=== PATIENT | male | born 1975 | race Caucasian/White ===

== ENCOUNTER 2019-06-21 21:50 | Inpatient (IN) | payer SELFPAY ==
[~2019-06-21] VITALS: Ht 185.4 cm; Wt 93.2 kg
[2019-06-21] MEDS ORDERED: SODIUM CHLORIDE FLUSH 10ML SYR IVF ONE (23:00)
[2019-06-21 23:08] LABS: BASOPHILS # (AUTO) 0.01 x10^3/uL (0-0.1); BASOPHILS % (AUTO) 0 % (0-1); EOSINOPHILS # (AUTO) 0.28 x10^3/uL (0-0.4); EOSINOPHILS % (AUTO) 2 % (1-7); LYMPHOCYTES # (AUTO) 2.36 x10^3/uL (1-3.4); LYMPHOCYTES % (AUTO) 13 % (22-44); MD NO; MEAN CORPUSCULAR HEMOGLOBIN 28.1 pg (27.5-34.5); MEAN CORPUSCULAR HGB CONC 32.7 g/dL (33.2-36.2); MEAN PLATELET VOLUME 7.6 fL (7.4-10.4); MONOCYTES # (AUTO) 1.07 x10^3/uL (0.2-0.8); MONOCYTES % (AUTO) 6 % (2-9); NEUTROPHILS # (AUTO) 14.09 x10^3/uL (1.8-6.8); NEUTROPHILS % (AUTO) 79 % (42-75); PLATELET COUNT 372 x10^3/uL (130-400); RED BLOOD COUNT 4.52 x10^6/uL (4.38-5.82)
[2019-06-21 23:09] LABS: HCT (SEDRATE) 38.9 % (39.2-51.8)
[2019-06-21 23:17] LABS: ALANINE AMINOTRANSFERASE 38 U/L (12-78); ALBUMIN 2.9 g/dL (3.4-5.0); ANION GAP 3 mmol/L (5-15); CALCIUM 9.1 mg/dL (8.5-10.1); CHLORIDE 103 mmol/L (98-107); CREATININE 1.07 mg/dL (0.7-1.3)
[2019-06-21 23:25] LABS: ALKALINE PHOSPHATASE 157 U/L (45-117); BILIRUBIN,TOTAL 0.6 mg/dL (0.2-1.0); TOTAL PROTEIN 8.6 g/dL (6.4-8.2)
[2019-06-21] MEDS ORDERED: OMNIPAQUE 350 MG/ML, 100ML BOTTLE ONE (23:30)
[2019-06-21] MEDS ORDERED: PIPERACILLIN/TAZO/PMX 3.375GM 50 ML IV ONE (23:30)
[2019-06-21] MEDS ORDERED: PIPERACILLIN/TAZO/PMX 3.375GM 50 ML ONE (23:39)
[2019-06-22] MEDS ORDERED: DOCUSATE 100 MG CAPSULE PO PRN (01:00)
[2019-06-22] MEDS ORDERED: ONDANSETRON 2MG/ML, 2ML IVPush PRN (01:00)
[2019-06-22] MEDS ORDERED: VANCOMYCIN PER PHARMACY MC PRN (01:00)
[2019-06-22] MEDS ORDERED: TEMAZEPAM 15 MG CAPSULE PO PRN (01:00)
[2019-06-22] MEDS ORDERED: LIDODERM 5% PATCH TD PRN (01:00)
[2019-06-22] MEDS ORDERED: ACETAMINOPHEN 325 MG TABLET PO PRN (01:00)
[2019-06-22 01:26] VITALS: BP 126/78
[2019-06-22] MEDS ORDERED: PHARMACOKINETIC MONITORING MC PRN (01:30)
[2019-06-22] MEDS: ENOXAPARIN 40 MG/0.4 ML SQ SCH (02:15)
[2019-06-22] MEDS: NICOTINE 7 MG/24 HR PATCH.TD24 TD SCH (02:15)
[2019-06-22] MEDS: VANCOMYCIN 2,000 MG in SODIUM CHLORIDE 0.9% 500 ML IV SCH ×2 (02:15→14:43)
[2019-06-22 03:25] LABS: AMPHETAMINE SCREEN, URINE Negative (Negative); BARBITURATE SCREEN, URINE Negative (Negative); BENZODIAZEPINE SCREEN, URINE Negative (Negative); CANNABINOID SCREEN, URINE Positive (Negative); COCAINE SCREEN, URINE Negative (Negative); METHADONE SCREEN, URINE Negative (Negative); OPIATE SCREEN, URINE Positive (Negative)
[2019-06-22 05:16] LABS: BASOPHILS # (AUTO) 0.03 x10^3/uL (0-0.1); BASOPHILS % (AUTO) 0 % (0-1); EOSINOPHILS # (AUTO) 0.27 x10^3/uL (0-0.4); EOSINOPHILS % (AUTO) 2 % (1-7); LYMPHOCYTES # (AUTO) 1.93 x10^3/uL (1-3.4); LYMPHOCYTES % (AUTO) 15 % (22-44); MD NO; MEAN CORPUSCULAR HEMOGLOBIN 28.1 pg (27.5-34.5); MEAN CORPUSCULAR HGB CONC 32.7 g/dL (33.2-36.2); MEAN PLATELET VOLUME 7.5 fL (7.4-10.4); MONOCYTES % (AUTO) 10 % (2-9); NEUTROPHILS # (AUTO) 8.99 x10^3/uL (1.8-6.8); NEUTROPHILS % (AUTO) 72 % (42-75); PLATELET COUNT 303 x10^3/uL (130-400); RED BLOOD COUNT 3.74 x10^6/uL (4.38-5.82); RED CELL DISTRIBUTION WIDTH 15.7 % (9.4-14.8)
[2019-06-22 05:17] LABS: ANION GAP 7 mmol/L (5-15); CALCIUM 8.3 mg/dL (8.5-10.1); CHLORIDE 104 mmol/L (98-107)
[2019-06-22 07:30] VITALS: BP 122/72
[2019-06-22] MEDS: AMPICILLIN/SULBACTAM 3 GM in SODIUM CHLORIDE 0.9% 100 ML IV SCH ×2 (08:00→17:50)
[2019-06-22 14:00] VITALS: BP 117/66
[2019-06-22] MEDS: morphine SULFATE 15 MG TAB.IR PO PRN (18:01)
[2019-06-22 19:35] VITALS: BP 137/87
[2019-06-23] MEDS: ENOXAPARIN 40 MG/0.4 ML SQ SCH (01:07)
[2019-06-23] MEDS: NICOTINE 7 MG/24 HR PATCH.TD24 TD SCH (01:08)
[2019-06-23] MEDS: AMPICILLIN/SULBACTAM 3 GM in SODIUM CHLORIDE 0.9% 100 ML IV SCH ×3 (02:14→17:51)
[2019-06-23] MEDS: morphine SULFATE 15 MG TAB.IR PO PRN ×4 (02:20→20:29)
[2019-06-23 02:24] VITALS: BP 125/80
[2019-06-23] MEDS: VANCOMYCIN 2,000 MG in SODIUM CHLORIDE 0.9% 500 ML IV SCH ×2 (02:56→14:50)
[2019-06-23 05:59] LABS: MEAN CORPUSCULAR HGB CONC 32.8 g/dL (33.2-36.2); MEAN CORPUSCULAR VOLUME 85.3 fL (81-97); MEAN PLATELET VOLUME 7.5 fL (7.4-10.4); PLATELET COUNT 337 x10^3/uL (130-400); RED BLOOD COUNT 3.66 x10^6/uL (4.38-5.82); RED CELL DISTRIBUTION WIDTH 15.6 % (9.4-14.8)
[2019-06-23 06:10] LABS: CHLORIDE 104 mmol/L (98-107)
[2019-06-23 06:16] LABS: ANION GAP 6 mmol/L (5-15); CALCIUM 8.1 mg/dL (8.5-10.1); CREATININE 0.64 mg/dL (0.7-1.3)
[2019-06-23 06:27] LABS: BASOPHILS # (AUTO) 0.02 x10^3/uL (0-0.1); BASOPHILS % (AUTO) 0 % (0-1); EOSINOPHILS # (AUTO) 0.17 x10^3/uL (0-0.4); EOSINOPHILS % (AUTO) 1 % (1-7); LYMPHOCYTES # (AUTO) 2.32 x10^3/uL (1-3.4); LYMPHOCYTES % (AUTO) 18 % (22-44); MD SCAN; MONOCYTES # (AUTO) 1.51 x10^3/uL (0.2-0.8); MONOCYTES % (AUTO) 12 % (2-9); NEUTROPHILS # (AUTO) 8.64 x10^3/uL (1.8-6.8); NEUTROPHILS % (AUTO) 68 % (42-75)
[2019-06-23 08:26] VITALS: BP 124/78
[2019-06-23] MEDS: KETOROLAC 30 MG/1 ML IV PRN ×2 (09:43→17:51)
[2019-06-23] MEDS ORDERED: POTASSIUM CHLORIDE 20 MEQ TAB.ER.PRT PO ONE (10:00)
[2019-06-23 14:57] VITALS: BP 142/78
[2019-06-23 19:52] VITALS: BP 127/81
[2019-06-24] MEDS: ENOXAPARIN 40 MG/0.4 ML SQ SCH ×2 (00:49→21:34)
[2019-06-24] MEDS: morphine SULFATE 15 MG TAB.IR PO PRN ×4 (01:16→23:39)
[2019-06-24] MEDS: NICOTINE 7 MG/24 HR PATCH.TD24 TD SCH ×2 (01:17→21:41)
[2019-06-24] MEDS: AMPICILLIN/SULBACTAM 3 GM in SODIUM CHLORIDE 0.9% 100 ML IV SCH ×3 (02:37→21:05)
[2019-06-24 02:59] VITALS: BP 122/72
[2019-06-24] MEDS: VANCOMYCIN 2,000 MG in SODIUM CHLORIDE 0.9% 500 ML IV SCH ×2 (03:57→18:38)
[2019-06-24 05:52] LABS: BASOPHILS # (AUTO) 0.03 x10^3/uL (0-0.1); BASOPHILS % (AUTO) 0 % (0-1); EOSINOPHILS # (AUTO) 0.15 x10^3/uL (0-0.4); EOSINOPHILS % (AUTO) 2 % (1-7); LYMPHOCYTES # (AUTO) 2.29 x10^3/uL (1-3.4); LYMPHOCYTES % (AUTO) 22 % (22-44); MD NO; MEAN CORPUSCULAR HEMOGLOBIN 27.8 pg (27.5-34.5); MEAN CORPUSCULAR HGB CONC 32.7 g/dL (33.2-36.2); MEAN PLATELET VOLUME 7.1 fL (7.4-10.4); MONOCYTES # (AUTO) 1.03 x10^3/uL (0.2-0.8); MONOCYTES % (AUTO) 10 % (2-9); NEUTROPHILS % (AUTO) 66 % (42-75); PLATELET COUNT 380 x10^3/uL (130-400); RED BLOOD COUNT 3.72 x10^6/uL (4.38-5.82); RED CELL DISTRIBUTION WIDTH 15.9 % (9.4-14.8)
[2019-06-24 06:04] LABS: ANION GAP 7 mmol/L (5-15); CALCIUM 8.4 mg/dL (8.5-10.1); CHLORIDE 108 mmol/L (98-107)
[2019-06-24 06:06] LABS: CREATININE 0.69 mg/dL (0.7-1.3)
[2019-06-24 08:14] VITALS: BP 146/78
[2019-06-24] MEDS: KETOROLAC 30 MG/1 ML IV PRN ×2 (11:09→19:39)
[2019-06-24 13:57] VITALS: BP 158/90
[2019-06-24] MEDS ORDERED: MIDAZOLAM 1 MG/ML, 2ML ONE (16:15)
[2019-06-24] MEDS ORDERED: FENTANYL PF 100 MCG/2ML ONE ×2 (16:15→16:27)
[2019-06-24] MEDS ORDERED: FENTANYL PF 250 MCG/5ML ONE (16:27)
[2019-06-24] MEDS ORDERED: DEXAMETHASONE 4 MG/ML, 1ML ONE (16:33)
[2019-06-24] MEDS ORDERED: ONDANSETRON 2MG/ML, 2ML ONE (16:33)
[2019-06-24] MEDS ORDERED: PROPOFOL 10 MG/ML, 20ML ONE (16:33)
[2019-06-24] MEDS ORDERED: CEFAZOLIN 1,000 MG ONE (16:33)
[2019-06-24] MEDS ORDERED: HALOPERIDOL 5 MG/ML ONE (16:46)
[2019-06-24] MEDS ORDERED: LORazepam 2 MG/ML, 1ML IVPush PRN (17:00)
[2019-06-24] MEDS ORDERED: ONDANSETRON 2MG/ML, 2ML IV PRN (17:00)
[2019-06-24] MEDS: HYDROmorphone 2 MG/ML, 1ML IVPush PRN ×2 (17:00→17:15)
[2019-06-24] MEDS ORDERED: HALOPERIDOL 5 MG/ML IV PRN (17:00)
[2019-06-24] MEDS ORDERED: MEPERIDINE/PF 25MG/ML,1ML IVPush PRN (17:00)
[2019-06-24] MEDS ORDERED: OXYcodone 5 MG/5 ML ORAL.SOL UDC PO PRN (17:00)
[2019-06-24] MEDS ORDERED: PROMETHAZINE 25 MG SUPP PR PRN (17:00)
[2019-06-24] MEDS ORDERED: ACETAMINOPHEN 325 MG TABLET PO PRN (17:00)
[2019-06-24] MEDS ORDERED: FENTANYL PF 100 MCG/2ML IV PRN (17:00)
[2019-06-24] MEDS ORDERED: ONDANSETRON ODT 8 MG PO PRN (17:00)
[2019-06-24] MEDS ORDERED: HYDROmorphone 1 MG/ML, 1ML INJ ONE (17:02)
[2019-06-24] MEDS ORDERED: ACETAMINOPHEN 650 MG/20.3 ML UDC ONE (17:11)
[2019-06-24] MEDS ORDERED: ACETAMINOPHEN 325 MG TABLET ONE (17:11)
[2019-06-24 20:55] VITALS: BP 155/88
[2019-06-25 02:17] VITALS: BP 127/81
[2019-06-25] MEDS: KETOROLAC 30 MG/1 ML IV PRN ×2 (02:23→22:45)
[2019-06-25] MEDS: morphine SULFATE 15 MG TAB.IR PO PRN ×5 (03:39→22:05)
[2019-06-25] MEDS: AMPICILLIN/SULBACTAM 3 GM in SODIUM CHLORIDE 0.9% 100 ML IV SCH ×3 (05:22→21:54)
[2019-06-25 05:42] LABS: BASOPHILS # (AUTO) 0.03 x10^3/uL (0-0.1); BASOPHILS % (AUTO) 0 % (0-1); EOSINOPHILS # (AUTO) 0.09 x10^3/uL (0-0.4); EOSINOPHILS % (AUTO) 1 % (1-7); LYMPHOCYTES # (AUTO) 1.66 x10^3/uL (1-3.4); LYMPHOCYTES % (AUTO) 16 % (22-44); MD NO; MEAN CORPUSCULAR HGB CONC 32.9 g/dL (33.2-36.2); MEAN CORPUSCULAR VOLUME 85.1 fL (81-97); MEAN PLATELET VOLUME 7.3 fL (7.4-10.4); MONOCYTES # (AUTO) 0.87 x10^3/uL (0.2-0.8); MONOCYTES % (AUTO) 8 % (2-9); NEUTROPHILS % (AUTO) 74 % (42-75); PLATELET COUNT 436 x10^3/uL (130-400); RED BLOOD COUNT 3.98 x10^6/uL (4.38-5.82); RED CELL DISTRIBUTION WIDTH 15.1 % (9.4-14.8)
[2019-06-25 05:47] LABS: HCT (SEDRATE) 33.4 % (39.2-51.8)
[2019-06-25 05:49] LABS: ANION GAP 9 mmol/L (5-15); CALCIUM 8.4 mg/dL (8.5-10.1); CHLORIDE 107 mmol/L (98-107)
[2019-06-25] MEDS: VANCOMYCIN 2,000 MG in SODIUM CHLORIDE 0.9% 500 ML IV SCH ×2 (06:27→18:29)
[2019-06-25 07:41] VITALS: BP 141/68
[2019-06-25 07:48] VITALS: BP 154/99
[2019-06-25 13:04] VITALS: BP 129/84
[2019-06-25 19:44] VITALS: BP 116/77
[2019-06-25] MEDS: NICOTINE 7 MG/24 HR PATCH.TD24 TD SCH (22:10)
[2019-06-26] MEDS: ENOXAPARIN 40 MG/0.4 ML SQ SCH (00:13)
[2019-06-26 01:40] VITALS: BP 101/64
[2019-06-26] MEDS: AMPICILLIN/SULBACTAM 3 GM in SODIUM CHLORIDE 0.9% 100 ML IV SCH ×2 (04:59→13:15)
[2019-06-26] MEDS: morphine SULFATE 15 MG TAB.IR PO PRN ×2 (05:10→10:49)
[2019-06-26] MEDS: KETOROLAC 30 MG/1 ML IV PRN (05:13)
[2019-06-26] MEDS: VANCOMYCIN 2,000 MG in SODIUM CHLORIDE 0.9% 500 ML IV SCH (06:24)
[2019-06-26 07:14] LABS: BASOPHILS # (AUTO) 0.03 x10^3/uL (0-0.1); BASOPHILS % (AUTO) 0 % (0-1); EOSINOPHILS # (AUTO) 0.31 x10^3/uL (0-0.4); EOSINOPHILS % (AUTO) 3 % (1-7); LYMPHOCYTES # (AUTO) 1.78 x10^3/uL (1-3.4); LYMPHOCYTES % (AUTO) 17 % (22-44); MD NO; MEAN CORPUSCULAR HEMOGLOBIN 28.1 pg (27.5-34.5); MEAN CORPUSCULAR HGB CONC 32.9 g/dL (33.2-36.2); MEAN CORPUSCULAR VOLUME 85.4 fL (81-97); MEAN PLATELET VOLUME 7.1 fL (7.4-10.4); MONOCYTES # (AUTO) 0.94 x10^3/uL (0.2-0.8); MONOCYTES % (AUTO) 9 % (2-9); NEUTROPHILS # (AUTO) 7.26 x10^3/uL (1.8-6.8); NEUTROPHILS % (AUTO) 70 % (42-75); PLATELET COUNT 423 x10^3/uL (130-400); RED BLOOD COUNT 3.75 x10^6/uL (4.38-5.82); RED CELL DISTRIBUTION WIDTH 15.4 % (9.4-14.8)
[2019-06-26 07:21] LABS: ANION GAP 7 mmol/L (5-15); CALCIUM 8.3 mg/dL (8.5-10.1); CHLORIDE 108 mmol/L (98-107)
[2019-06-26 07:25] LABS: CREATININE 0.77 mg/dL (0.7-1.3)
[2019-06-26 07:58] VITALS: BP 125/80
[2019-06-26] MEDS ORDERED: ACID1TAB3 PO (11:52)
[2019-06-26] MEDS ORDERED: AMOX1TAB64 PO (11:52)
[2019-06-26] MEDS ORDERED: DOXY100T PO (11:52)
== END 2019-06-26 14:25 | disposition home or self-care (01) | DRG 580 ==
LOC: ED 23:22 → EDIP 06-22 01:01 → 3N 06-22 01:05 → DCLOUNGE 06-26 14:22
PROVIDERS: ADMIT Internal Medicine; ATTEND Internal Medicine
PROC: 0KBB0ZZ Excision of Left Lower Arm and Wrist Muscle, Open Approach (ICD-10-PCS; principal; 2019-06-24 09:30)
DX: L03.114 Cellulitis of left upper limb (principal); F11.20 Opioid dependence, uncomplicated; L02.414 Cutaneous abscess of left upper limb; D64.9 Anemia, unspecified; E87.6 Hypokalemia; F17.200 Nicotine dependence, unspecified, uncomplicated; Z71.6 Tobacco abuse counseling
CPT/HCPCS: 36415; 80048; 80053; 80202; 80307; 83605; 85025; 85651; 86140; 87070; 87075; 87205; 99285; G0378; J0295; J0690; J1100; J1170; J1885; J2250; J2405; J2543; J2704; J3010; J3370; Q9967; J7040